=== PATIENT | female | born 1990 | race African-American/Black ===

== ENCOUNTER 2016-08-04 21:46 | Emergency (ER) | payer OTHER ==
[2016-08-04 21:56] VITALS: BP 131/77; PULSE 65; TEMP 97.9; BMI 28.4
--- NOTE | 2016-08-04 21:56 | PDOC ---
Rapid Medical Evaluation Chief Complaint: Foreign Body (FB) Time Seen by Provider: 08/04/16 21:55 Medical Evaluation: Allergies Allergy/AdvReac Type Severity Reaction Status Date / Time No Known Allergies Allergy Verified 08/04/16 21:54 08/04/16 21:56 I have performed a brief in-person evaluation of this patient. The patient presents with a chief complaint of:FB in vagina Pertinent physical exam findings: I have ordered the following: The patient will proceed to the ED for further evaluation.
--- NOTE | 2016-08-04 23:36 | PDOC ---
*Physical Exam - Vital Signs Last Vital Signs Temp Pulse Resp BP Pulse Ox 97.9 F 65 18 131/77 100 08/04/16 21:54 08/04/16 21:54 08/04/16 21:54 08/04/16 21:54 08/04/16 21:54 <Fred Palma - Last Filed: 08/04/16 23:36> - Vital Signs Last Vital Signs Temp Pulse Resp BP Pulse Ox 97.9 F 65 18 131/77 100 08/04/16 21:54 08/04/16 21:54 08/04/16 21:54 08/04/16 21:54 08/04/16 21:54 <Calos Sethi - Last Filed: 08/04/16 23:45> Medical Decision Making - Medical Decision Making 08/04/16 23:36 Pt seen by the Advanced Practice Provider under my direct supervision Ancillary studies reviewed I agree with plan as outlined by the Advanced Practice Provider NELL Sethi <Fred Palma - Last Filed: 08/04/16 23:36> *DC/Admit/Observation/Transfer <Fred Palma - Last Filed: 08/04/16 23:36> <Calos Sethi - Last Filed: 08/04/16 23:45> Diagnosis at time of Disposition: Sensation of foreign body - Discharge Dispostion Disposition: HOME Condition at time of disposition: Stable - Referrals Referrals: Сергей Muller MD [Staff Physician] - Elisa Salinas [Primary Care Provider] - - Patient Instructions Additional Instructions: Please return to the ER for fever/chills or any concerns. A foreign body was not noted on my exam. You are to follow up with the FULL ROLL INSPECTOR. You did not wish to wait for your urine analysis so we've agreed to have you call the emergency department within an hour to find out the results. If you do have an infection, I will call a prescription in for you otherwise your to follow with your FULL ROLL INSPECTOR. Maame Barrientos [phone] The ER number is [phone]
--- NOTE | 2016-08-04 23:36 | PDOC ---
History of Present Illness - General Chief Complaint: Foreign Body (FB) Stated Complaint: FOREIGN OBJECT Time Seen by Provider: 08/04/16 21:55 History Source: Patient Exam Limitations: No Limitations - History of Present Illness Timing/Duration: other (~10 hrs) Associated Symptoms: reports: denies symptoms Past History - Travel Traveled outside of the country in the last 30 days: No Close contact w/someone who was outside of country & ill: No - Past Medical History Allergies/Adverse Reactions: Allergies Allergy/AdvReac Type Severity Reaction Status Date / Time No Known Allergies Allergy Verified 08/04/16 21:54 Home Medications: Ambulatory Orders No Home Medications 0 dose .ROUTE UTDICT 02/23/12 Other medical history: denies - Psycho/Social/Smoking Cessation Hx Anxiety: No Suicidal Ideation: No Smoking Status: No Smoking History: Unknown if ever smoked Number of Cigarettes Smoked Daily: 1 Information on smoking cessation initiated: Yes 'Breaking Loose' booklet given: 08/04/16 Hx Alcohol Use: No Review of Systems - Review of Systems Able to Perform ROS?: Yes Comments:: 08/04/16 23:33 CONSTITUTIONAL: Absent: fever, chills, diaphoresis, generalized weakness, malaise, loss of appetite HEENT: Absent: rhinorrhea, nasal congestion, throat pain, throat swelling, difficulty swallowing, mouth swelling, ear pain, eye pain, visual Changes CARDIOVASCULAR: Absent: chest pain, loss of consciousness, palpitations, irregular heart rate, peripheral edema RESPIRATORY: Absent: cough, shortness of breath, dyspnea with exertion, orthopnea, wheezing, stridor, hemoptysis GASTROINTESTINAL: ?FB/tampon Absent: abdominal pain, abdominal distension, nausea, vomiting, diarrhea, constipation, melena, hematochezia GENITOURINARY: Absent: dysuria, frequency, urgency, hesitancy, hematuria, flank pain, genital pain SKIN: Absent: rash, itching, pallor PSYCHIATRIC: Absent: anxiety, depression, suicidal or homicidal ideation, hallucinations. Is the patient limited Macedonian proficient: No *Physical Exam - Vital Signs Last Vital Signs Temp Pulse Resp BP Pulse Ox 97.9 F 65 18 131/77 100 08/04/16 21:54 08/04/16 21:54 08/04/16 21:54 08/04/16 21:54 08/04/16 21:54 - Physical Exam Comments: 08/04/16 23:34 GENERAL: Well developed, well nourished. Awake and alert. No acute distress. HEENT: Normocephalic, atraumatic. PERRLA, EOMI. No conjunctival pallor. Sclera are non- icteric. Moist mucous membranes. Oropharynx is clear. NECK: Supple. Full ROM. No JVD. Carotid pulses 2+ and symmetric, without bruits. No thyromegaly. No lymphadenopathy. CARDIOVASCULAR: Regular rate and rhythm. No murmurs, rubs, or gallops. Distal pulses are 2+ and symmetric. PULMONARY: No evidence of respiratory distress. Lungs clear to auscultation bilaterally. No wheezing, rales or rhonchi. ABDOMINAL: Soft. Non-tender. Non-distended. No rebound or guarding. No organomegaly. Normoactive bowel sounds. Pelvic: External genitalia normal without lesions. Vaginal vault is clear without blood or discharge. NO fb noted Cervix is long and closed. No cervical motion tenderness. Uterus is nontender and normal in size. Adnexa are nontender and without masses. *DC/Admit/Observation/Transfer Diagnosis at time of Disposition: Sensation of foreign body - Discharge Dispostion Disposition: HOME Condition at time of disposition: Stable Admit: No - Referrals Referrals: Elisa Salinas [Primary Care Provider] - Сергей Muller MD [Staff Physician] - - Patient Instructions Additional Instructions: Please return to the ER for fever/chills or any concerns. A foreign body was not noted on my exam. You are to follow up with the DRYING CAN WORKER. You did not wish to wait for your urine analysis so we've agreed to have you call the emergency department within an hour to find out the results. If you do have an infection, I will call a prescription in for you otherwise your to follow with your DRYING CAN WORKER. Karly/ Pola Barrientos [phone] Progress Note - Progress Note Progress Note: 26-year-old female presents to the emergency department complaining of possible foreign body in her vaginal orifice. Patient states she inserted a tampon at approximately 1:30 this afternoon and had every intention to remove it 3 hours later a fell asleep. Patient woke up at approximately 1700 hrs. but was unable to locate the string to her tampon. Patient denies any fever, chills, nausea/ vomiting, abdominal pains, flank pains, urinary symptoms: Frequency/urgency/ hesitancy, hematuria. Patient denies any complaints. LMP presently
[2016-08-05 00:05] LABS: URINE APPEARANCE CLEAR; URINE BILIRUBIN NEGATIVE (NEGATIVE); URINE COLOR STRAW; URINE GLUCOSE (UA) NEGATIVE (NEGATIVE); URINE KETONE NEGATIVE (NEGATIVE); URINE LEUK ESTERASE NEGATIVE (NEGATIVE); URINE NITRITE NEGATIVE (NEGATIVE); URINE PROTEIN NEGATIVE (NEGATIVE); URINE UROBILINOGEN NEGATIVE E.U./dl (0.2-1.0)
[2016-08-05 00:26] LABS: URINE BLOOD 2+ (NEGATIVE)
[2016-08-05 00:30] LABS: URINE BACTERIA RARE /hpf (NONE SEEN); URINE MUCUS RARE; URINE RBC <1 /hpf (0-3); URINE WBC <1 /hpf (3-5)
== END 2016-08-04 23:57 | disposition home or self-care (01) ==
LOC: JERFT 21:46 → JER 21:46
DX: Z03.89 Encounter for observation for other suspected diseases and conditions ruled out (principal); T19.2XXA Foreign body in vulva and vagina, initial encounter
CPT/HCPCS: 81003; 81015; 84703; 99281-25

== ENCOUNTER → 2017-08-16 | Day surgery (SDC) | payer OTHER ==
--- NOTE | 2017-08-18 10:29 | PATH ---
Surgical Pathology Report Patient Name: CHRISTY APPLE [facility]. Rec. #: [id number] /Age/Gender: 1990 (Age: 27) / F Account: [id number] Location: [facility] Taken: 08/16/2017 Received: 08/16/2017 Reported: 08/18/2017 Physicians: Shaniqua Mittal MD Specimen(s) Received 2CM BREAST CORE BIOPSY Clinical History 2 cm mass left breast 3:00 4:00 position, palpable mass Ultrasound findings: Probably benign Final Diagnosis LEFT BREAST, 3:00-4:00, ULTRASOUND GUIDED NEEDLE CORE BIOPSY: FIBROADENOMA. Electronically Signed Chris Reynoso M.D. Gross Description Received in formalin labeled "left breast biopsy," are 5 degroot-yellow, cylindrical portions of fibroadipose tissue ranging from 0.3-1.5 cm in length and averaging 0.1 cm diameter. The specimens are submitted in toto in one cassette. Total formalin fixation time: Approximately 31 hours 08/17/201708/17/2017
== END | disposition home or self-care (01) ==
LOC: JRADUS-SUR 09:34
PROVIDERS: ATTEND Internal Medicine
PROC: 0HBU3ZX Excision of Left Breast, Percutaneous Approach, Diagnostic (ICD-10-PCS; principal; 2017-08-16)
DX: D24.2 Benign neoplasm of left breast (principal)
CPT/HCPCS: 19083; 87899; 88305-TC

== ENCOUNTER 2020-01-13 03:47 | Emergency (ER) | payer OTHER ==
--- NOTE | 2020-01-13 03:50 | PDOC ---
History of Present Illness <Lana Mcknight - Last Filed: 01/13/20 07:18> - History of Present Illness Initial Comments: 01/13/20 04:10 This 29-year-old otherwise healthy female presents with approximately 12 hours of progressive lower abdominal pain. Patient states that she ate lunch approximately 2 PM yesterday (shrimp) and about 2 or 3 hours later began to have bilateral lower abdominal pain. She has mild intermittent nausea associated with this but no vomiting. She describes sensation of tenesmus but had normal bowel movement soon after the onset of the pain. There has been no fever/chi lls. She recalls similar pain approximately a month ago with pain resolving spontaneously over several hours LMP 12/12; she states that she has regular menstrual periods. She is sexually active and does not use contraception. Patient has a history of uterine fibroids No daily medications No known allergies Daily marijuana use; drinks alcohol "4 times a week" <Demi Connelly - Last Filed: 01/14/20 00:15> - General Chief Complaint: Pain Stated Complaint: LOWER ABDOMINAL PAIN Time Seen by Provider: 01/13/20 03:50 Past History <Lana Mcknight - Last Filed: 01/13/20 07:18> - Psycho-Social/Smoking History Smoking Status: No Smoking History: Unknown if ever smoked Number of Cigarettes Smoked Daily: 1 'Breaking Loose' booklet given: 08/04/16 <Demi Connelly - Last Filed: 01/14/20 00:15> - Medical History Allergies/Adverse Reactions: Allergies Allergy/AdvReac Type Severity Reaction Status Date / Time No Known Allergies Allergy Verified 01/13/20 03:49 Home Medications: Ambulatory Orders No Home Medications 0 dose .ROUTE UTDICT 02/23/12 Review of Systems - Review of Systems Able to Perform ROS?: Yes Comments:: 12 point review of systems is negative except for what is noted in the history of present illness <Demi Connelly - Last Filed: 01/14/20 00:15> *Physical Exam - Vital Signs Last Vital Signs Temp Pulse Resp BP Pulse Ox 98.9 F 80 16 107/78 100 01/13/20 03:50 01/13/20 03:50 01/13/20 03:50 01/13/20 03:50 01/13/20 03:50 <Lana Mcknight - Last Filed: 01/13/20 07:18> - Physical Exam GENERAL: Adult female, alert and oriented x3, in no acute distress HEAD: Normal with no signs of trauma. EYES: PERRLA, EOMI, sclera anicteric, conjunctiva clear. ENT: Ears normal, nares patent, oropharynx clear without exudates. Dry mucous membranes. NECK: Normal range of motion, supple without lymphadenopathy, JVD, or masses. LUNGS: Breath sounds equal, clear to auscultation bilaterally. No wheezes, and no crackles. HEART:Regular rate and rhythm, normal S1 and S2 without murmur, rub or gallop. ABDOMEN:.normal bowel sounds; bilateral lower quadrant tenderness right > left, positive Rovsing sign; mild rebound tenderness present EXTREMITIES: Normal range of motion, no edema. No clubbing or cyanosis. No erythema, or tenderness. NEUROLOGICAL: Cranial nerves II through XII grossly intact. Normal speech. No focal neurological deficits . SKIN: Warm, Dry, normal turgor, no rashes or lesions noted. <Demi Connelly - Last Filed: 01/14/20 00:15> ED Treatment Course - LABORATORY CBC & Chemistry Diagram: 01/13/20 04:15 01/13/20 04:15 - ADDITIONAL ORDERS Additional order review: Laboratory Results 01/13/20 01/13/20 04:15 04:15 Sodium 139 Potassium 4.0 Chloride 107 Carbon Dioxide 25 Anion Gap 8 BUN 10.8 Creatinine 1.0 Est GFR (CKD-EPI)AfAm 89.41 Est GFR (CKD-EPI)NonAf 77.15 Random Glucose 93 Calcium 9.0 Total Bilirubin 0.4 AST 14 L ALT 22 Alkaline Phosphatase 65 Total Protein 7.4 Albumin 4.3 Urine Color Yellow Urine Appearance Clear Urine pH 5.0 Ur Specific Arm[place] 1.010 Urine Protein N Urine Glucose (UA) Negative Urine Ketones Negative Urine Blood N Urine Nitrite Negative Urine Bilirubin Negative Urine Urobilinogen 0.2 Ur Leukocyte Esterase N Urine HCG, Qual Negative 01/13/20 04:15 RBC 4.67 MCV 87.4 MCHC 33.5 RDW 13.8 MPV 9.3 D Neutrophils % 50.9 D Lymphocytes % 40.4 H D Monocytes % 7.0 Eosinophils % 1.0 D Basophils % 0.7 D <Lana Mcknight - Last Filed: 01/13/20 07:18> - LABORATORY CBC & Chemistry Diagram: 01/13/20 04:15 01/13/20 04:15 <Demi Connelly - Last Filed: 01/14/20 00:15> ED Progress Note - Progress Note Progress Note: This otherwise healthy 29-year-old female presents with several hour history of bilateral lower quadrant abdominal pain (right> left). Exam as noted above. The patient has significant right lower quadrant tenderness with rebound and Rovsing sign Differential diagnosis includes but not limited to: Acute appendicitis, ovarian or uterine pathology,local enteritis or colitis, renal colic, diverticulitis CBC, chemistry profile, urinalysis, PGU sent Laboratory evaluation is essentially normal with normal white blood cell count and no significant abnormality in the chemistry profile. Urinalysis is negative for cells or bacteria. PGU was negative. Because of the patient's localized right lower quadrant tenderness with peritoneal irritation signs, abdominal/pelvic CT will be performed to fully rule out acute appendicitis or other acute pathology. 01/13/20 07:12 Case signed out to incoming physician at end of shift 01/14/20 00:15 Abdominal/pelvic CT notable for a 4.6 mm right ovarian cyst with free fluid in the pelvis <Demi Connelly - Last Filed: 01/14/20 00:15> Discharge - Discharge Information Problems reviewed: Yes <Lana Mcknight - Last Filed: 01/13/20 07:18> - Discharge Information Problems reviewed: Yes <Demi Connelly - Last Filed: 01/14/20 00:15> - Discharge Information Clinical Impression/Diagnosis: Ovarian cyst Qualifiers: Laterality: right Qualified Code(s): N83.201 - Unspecified ovarian cyst, right side Condition: Stable Disposition: HOME - Follow up/Referral Referrals: Elisa Salinas [Primary Care Provider] - - Patient Discharge Instructions Patient Printed Discharge Instructions: DI for Ovarian Cyst Additional Instructions: You should follow up with your CEMENT GUN OPERATOR. Return to the ED for new or worsening symptoms. - Post Discharge Activity
[2020-01-13 03:56] VITALS: BP 107/78; PULSE 80; TEMP 98.9; BMI 31.5
[2020-01-13 04:59] LABS: BASO % 0.7 % (0-2.0); HEMATOCRIT 40.9 % (32.4-45.2); HEMOGLOBIN 13.7 GM/dL (10.7-15.3); LYMPH % 40.4 % (8-40); MCH 29.3 pg (25.7-33.7); MCHC 33.5 g/dl (32.0-36.0); MEAN CELL VOLUME 87.4 fl (80-96); MEAN PLT VOLUME 9.3 fl (7.5-11.1); NEUT % 50.9 % (42.8-82.8); PLATELET COUNT 187 K/MM3 (134-434); RBC 4.67 M/mm3 (3.60-5.2); RDW 13.8 % (11.6-15.6); WHITE BLOOD COUNT 7.9 K/mm3 (4.0-10.0)
[2020-01-13 05:04] LABS: HCG,QUALITATIVE URINE Negative
[2020-01-13 05:09] LABS: URINE APPEARANCE CLEAR; URINE BILIRUBIN NEGATIVE (NEGATIVE); URINE COLOR YELLOW; URINE GLUCOSE (UA) NEGATIVE (NEGATIVE); URINE KETONE NEGATIVE (NEGATIVE); URINE LEUK ESTERASE N (NEGATIVE); URINE NITRITE NEGATIVE (NEGATIVE); URINE PROTEIN N (NEGATIVE); URINE UROBILINOGEN 0.2 mg/dL (0.2-1.0)
[2020-01-13 05:25] LABS: ALBUMIN 4.3 g/dl (3.4-5.0); BILIRUBIN,TOTAL 0.4 mg/dL (0.2-1); BLOOD UREA NITROGEN 10.8 mg/dL (7-18); TOT PROT 7.4 g/dl (6.4-8.2)
== END 2020-01-13 07:31 | disposition home or self-care (01) ==
LOC: FER 03:47
DX: N83.201 Unspecified ovarian cyst, right side (principal)
CPT/HCPCS: 36415; 74177-TC; 80053; 81003; 84703; 85025; 99285-25; Q9967